=== PATIENT | female | born 1995 | race Caucasian/White ===

== ENCOUNTER → 2023-10-13 12:00 | Outpatient (BNVA) | payer OTHER, SELFPAY | PROVIDERS: Referring Provider Family Medicine; Visit Provider Internal Medicine | DX: E07.9 Disorder of thyroid, unspecified (principal); E03.9 Hypothyroidism, unspecified; F32.A Depression, unspecified; E05.00 Thyrotoxicosis with diffuse goiter without thyrotoxic crisis or storm | CPT/HCPCS: 84439; 84443 ==

== ENCOUNTER → 2023-12-25 11:01 | Outpatient (BNVA) | payer OTHER, SELFPAY | PROVIDERS: Visit Provider Internal Medicine | DX: E03.9 Hypothyroidism, unspecified (principal) | CPT/HCPCS: 36415; 84439; 84443 ==